=== PATIENT | male | born 1940 | race Caucasian/White ===

== ENCOUNTER 2017-04-20 15:18 | Emergency (ER) | payer MEDICARE ==
[~2017-04-20] VITALS: Ht 182.9 cm; Wt 113.6 kg
[2017-04-20 15:20] VITALS: TEMP 98.9
[2017-04-20] MEDS ORDERED: ASPIRIN 81M81 MG/TA2 PO (15:26)
[2017-04-20] MEDS ORDERED: CATAPRES0.2 MG PO (15:26)
[2017-04-20] MEDS ORDERED: NORVASC 5MG5 MG/TAB PO (15:26)
[2017-04-20] MEDS ORDERED: MICARDIS80 MG PO (15:27)
[2017-04-20] MEDS ORDERED: SYNTHROID0.175 MG PO (15:27)
[2017-04-20] MEDS ORDERED: CALCIUM CARBON650 M2 (15:27)
[2017-04-20] MEDS ORDERED: TOPROL XL100 MG PO (15:28)
[2017-04-20 16:38] LABS: BASO # 0.1 (0.0-0.2); BASO % 0.7 % (0.0-2.0); EOS # 0.3 (0.0-0.7); EOS % 3.4 % (0-4.0); GRAN # 5.6 (1.4-6.5); GRAN % 67.2 % (42.2-75.2); HEMATOCRIT 43.2 % (42.0-52.0); HEMOGLOBIN 14.8 g/dl (13.5-18.0); LYMPH # 1.7 (1.2-3.4); LYMPH % 20.4 % (20.0-51.0); MEAN CELL VOLUME 84 fl (80.0-100.0); MEAN CORPUSCULAR HEMOGLOBIN 29 pg (27.0-31.0); MEAN CORPUSCULAR HGB CONC 34 g/dl (33.0-37.0); MEAN PLATELET VOLUME 9.4 fl (7.4-10.4); MONO # 0.7 (0.1-0.6); MONO % 7.8 % (1.7-9.3); PLATELET COUNT 319 K/mm3 (130-400); RED BLOOD COUNT 5.14 M/mm3 (4.20-5.60); REDCELL DISTRIBUTION WIDTH-CV 13.9 % (11.5-14.5); WHITE BLOOD COUNT 8.3 K/mm3 (4.8-10.8)
[2017-04-20 16:47] LABS: ANION GAP 13 mmol/L (7-16); BLOOD UREA NITROGEN 16 mg/dL (9-20); CALCIUM 9.6 mg/dL (8.4-10.2); CARBON DIOXIDE 24 mmol/L (22-30); CHLORIDE 103 mmol/L (98-107); CREATININE, serum 0.96 mg/dL (0.66-1.25); GLUCOSE 96 mg/dL (74-106); POTASSIUM 3.6 mmol/L (3.4-5.0); SODIUM 140 mmol/L (137-145)
[2017-04-20 16:59] LABS: B-TYPE NATRIURETIC PEPTIDE 174 pg/mL (0-450)
[2017-04-20 17:03] LABS: PH 7 (5-8); SQUAMOUS EPITHELIAL None Seen /hpf; URINE APPEARANCE Clear; URINE BACTERIA None Seen /hpf; URINE BILIRUBIN Negative (NEGATIVE); URINE BLOOD Negative (NEGATIVE); URINE COLOR Yellow; URINE GLUCOSE Negative (NEGATIVE); URINE KETONE Negative (NEGATIVE); URINE RBC 0-2 /hpf; URINE UROBILINOGEN Negative (NEGATIVE); URINE WBC 0-2 /hpf
[2017-04-20 17:19] LABS: TROPONIN-I < 0.012 ng/mL (0.000-0.034)
[2017-04-20] MEDS ORDERED: ATARAX 25MG25 MG/TAB PO (18:05)
[2017-04-20] MEDS ORDERED: APRESOLINE 10MG10 MG PO (18:05)
[2017-04-20 18:28] VITALS: BP 184/95; PULSE 85
== END 2017-04-20 18:30 | disposition home or self-care (01) ==
LOC: COL.ER 15:18
PROVIDERS: Emergency Medicine
DX: I10 Essential (primary) hypertension (principal); R53.1 Weakness; F41.9 Anxiety disorder, unspecified; R42 Dizziness and giddiness; R60.0 Localized edema; Z85.850 Personal history of malignant neoplasm of thyroid; I45.10 Unspecified right bundle-branch block
CPT/HCPCS: J0360

== ENCOUNTER 2017-04-26 12:53 | Emergency (ER) | payer MEDICARE, BC ==
[~2017-04-26] VITALS: Ht 182.9 cm; Wt 113.6 kg
[2017-04-26 12:53] VITALS: TEMP 97
[~2017-04-26 12:53] MED LIST: APRESOLINE 10MG10 MG PO; ASPIRIN 81M81 MG/TA2 PO; ATARAX 25MG25 MG/TAB PO; CALCIUM CARBON650 M2; CATAPRES0.2 MG PO; MICARDIS80 MG PO; NORVASC 5MG5 MG/TAB PO; SYNTHROID0.175 MG PO; TOPROL XL100 MG PO
[2017-04-26 13:56] LABS: BASO # 0.1 (0.0-0.2); BASO % 0.8 % (0.0-2.0); EOS # 0.2 (0.0-0.7); EOS % 2.5 % (0-4.0); GRAN # 4.1 (1.4-6.5); GRAN % 68.7 % (42.2-75.2); HEMATOCRIT 43.4 % (42.0-52.0); HEMOGLOBIN 14.6 g/dl (13.5-18.0); LYMPH # 1.2 (1.2-3.4); LYMPH % 20.6 % (20.0-51.0); MEAN CELL VOLUME 85 fl (80.0-100.0); MEAN CORPUSCULAR HEMOGLOBIN 29 pg (27.0-31.0); MEAN CORPUSCULAR HGB CONC 34 g/dl (33.0-37.0); MEAN PLATELET VOLUME 9.5 fl (7.4-10.4); MONO # 0.4 (0.1-0.6); MONO % 7.1 % (1.7-9.3); PLATELET COUNT 274 K/mm3 (130-400); RED BLOOD COUNT 5.11 M/mm3 (4.20-5.60); REDCELL DISTRIBUTION WIDTH-CV 13.9 % (11.5-14.5); WHITE BLOOD COUNT 5.9 K/mm3 (4.8-10.8)
[2017-04-26 14:01] LABS: ADJUSTED CALCIUM 8.9 mg/dL (8.4-10.2); ALANINE AMINOTRANSFERASE 32 U/L (21-72); ALBUMIN 4.5 gm/dL (3.5-5.0); ALKALINE PHOSPHATASE 64 U/L (50-136); ANION GAP 11 mmol/L (7-16); BILIRUBIN,TOTAL 0.9 mg/dL (0.0-1.0); BLOOD UREA NITROGEN 12 mg/dL (9-20); CALCIUM 9.3 mg/dL (8.4-10.2); CARBON DIOXIDE 24 mmol/L (22-30); CHLORIDE 105 mmol/L (98-107); CREATININE, serum 0.77 mg/dL (0.66-1.25); GLUCOSE 114 mg/dL (74-106); POTASSIUM 3.7 mmol/L (3.4-5.0); SODIUM 140 mmol/L (137-145)
[2017-04-26 14:13] LABS: TROPONIN-I < 0.012 ng/mL (0.000-0.034)
[2017-04-26] MEDS ORDERED: CATAPRES 0.1MG0.1 MG PO (15:09)
[2017-04-26] MEDS ORDERED: ATIVAN 0.50.5 MG/TAB PO (15:09)
[2017-04-26 16:07] VITALS: BP 157/83; PULSE 75
[2017-04-26] MEDS ORDERED: CORDARONE200 MG/TAB PO (16:23)
== END 2017-04-26 16:07 | disposition home or self-care (01) ==
LOC: COL.ER 12:53
PROVIDERS: Emergency Medicine
DX: I10 Essential (primary) hypertension (principal); F41.9 Anxiety disorder, unspecified; Z79.82 Long term (current) use of aspirin; Z90.89 Acquired absence of other organs